=== PATIENT | female | born 1935 | race Caucasian/White ===

== ENCOUNTER → 2017-01-07 | Outpatient (CLI) | payer MEDICARE ==
--- NOTE | 2017-01-08 07:49 | MM ---
Reason for exam: screening (asymptomatic). Last mammogram was performed 1 year and 1 month ago. History: Patient is postmenopausal and has history of high-risk lesion on a previous biopsy at age 70. High risk left mammotome panel of the left breast, November 25, 2005. Physical Findings: A clinical breast exam by your physician is recommended on an annual basis and results should be correlated with mammographic findings. MG 3D Screening Mammo W/Cad Bilateral CC and MLO view(s) were taken. Prior study comparison: December 06, 2015, bilateral MG screening mammo w CAD. November 27, 2014, bilateral MG screening mammo w CAD. The breast tissue is almost entirely fat. Previous mammotome biopsy in the left breast. Asymmetric breast tissue in the right breast is stable with calcifications. No significant changes when compared with prior studies. ASSESSMENT: Benign, BI-RAD 2 RECOMMENDATION: Routine screening mammogram of both breasts in 1 year.
== END | disposition home or self-care (01) ==
LOC: RADMAMWWP 10:39
PROVIDERS: ATTEND Internal Medicine Geriatric Medicine
DX: Z12.31 Encounter for screening mammogram for malignant neoplasm of breast (principal)
CPT/HCPCS: 77063; G0202

== ENCOUNTER → 2017-02-04 | Outpatient (CLI) | payer MEDICARE ==
[~2017-02-04] MED LIST: DENOSUMAB 60 MG/ML 1 ML SYRINGE SQ ONE
[2017-02-04 14:50] VITALS: BP 153/72; PULSE 62; RESP 18; TEMP 98.4
== END | disposition home or self-care (01) ==
LOC: PROCWHC3 13:55
PROVIDERS: ATTEND Internal Medicine Geriatric Medicine
DX: M81.0 Age-related osteoporosis without current pathological fracture (principal)
CPT/HCPCS: 96372; J0897

== ENCOUNTER → 2017-08-26 | Outpatient (CLI) | payer MEDICARE ==
[2017-08-26 13:43] VITALS: BP 137/72; PULSE 65; RESP 18; TEMP 97.9
== END | disposition home or self-care (01) ==
LOC: PROCWHC3 13:16
PROVIDERS: ATTEND Internal Medicine Geriatric Medicine
DX: M81.0 Age-related osteoporosis without current pathological fracture (principal)
CPT/HCPCS: 96372; J0897

== ENCOUNTER → 2018-08-19 | Outpatient (CLI) | payer MEDICARE ==
--- NOTE | 2018-08-22 11:08 | MM ---
Reason for exam: additional evaluation requested from abnormal screening. Last mammogram was performed less than 1 month ago. History: Patient is postmenopausal and has history of high-risk lesion on a previous biopsy at age 70. High risk left mammotome panel of the left breast, November 25, 2005. Physical Findings: Nurse Summary: 1 x 1cm nodule in the left breast at 9 o'clock (nurse ts). MG 3D Work Up W/Cad RT CC with magnification, LM with magnification, and LM view(s) were taken of the right breast. Prior study comparison: August 05, 2018, bilateral MG screening mammo w CAD. January 07, 2017, bilateral MG 3d screening mammo w/cad. There are scattered fibroglandular densities. Finding: There are indeterminate calcifications in the upper outer quadrant of the right breast. Recommend needle localization with open biopsy given thickness of breast. These results were verbally communicated with the patient and result sheet given to the patient on 08/19/18. ASSESSMENT: Suspicious, BI-RAD 4 RECOMMENDATION: Localization and excision of the right breast. Patient refused to schedule with surgeon at this point.
--- NOTE | 2018-08-22 11:11 | USB ---
Reason for exam: additional evaluation requested from abnormal screening. History: Patient is postmenopausal and has history of high-risk lesion on a previous biopsy at age 70. High risk left mammotome panel of the left breast, November 25, 2005. US Breast Workup Limited LT Left limited breast ultrasound including focal area of concern, retroareolar and axilla demonstrates a 6 x 4 x 6mm oval, hypoechoic lesion at 9 o'clock, probable sebaceous cyst, biopsy recommended for right breast calcifications. These results were verbally communicated with the patient and result sheet given to the patient on 08/19/18. ASSESSMENT: Benign, BI-RAD 2 RECOMMENDATION: Clinical management of the left breast. Right needle localization recommended. Patient refused to schedule with surgeon at this point.
== END | disposition home or self-care (01) ==
LOC: RADMAMWWP 13:37
PROVIDERS: ATTEND Internal Medicine Geriatric Medicine
DX: R92.8 Other abnormal and inconclusive findings on diagnostic imaging of breast (principal)
CPT/HCPCS: 77065; 76642; G0279; 77061

== ENCOUNTER → 2018-09-22 | Outpatient (CLI) | payer MEDICARE ==
[2018-09-22 10:37] VITALS: BP 190/88; PULSE 88; RESP 18; TEMP 98.1; BMI 19.1
--- NOTE | 2018-09-22 11:03 | P.GSHP ---
History of Present Illness H&P Date: 09/22/18 Chief Complaint: Radiographic abnormalities bilateral breast The patient is an 82-year-old white female who underwent a routine screening mammogram on 9718. The findings here revealed #19 mm equal density isodense mass in both breast #2 indeterminate calcifications in the central position of the right breast. The patient has undergone previous mammotome biopsy of the left breast. The patient [place] [id number]. On the supplemental views she was noted to have #1 indeterminate calcifications in the upper outer quadrant of the right breast. Open surgical biopsy was recommended secondary to the size of the breast. Additionally the patient had an ultrasound performed of the left breast and on the left breast ultrasound the patient was recommended to have clinical management of a 6 x 6 mm oval hypoechoic lesion at 9:00 felt to likely represent a sebaceous cyst. The patient does not feel anything in her breast. She has no abnormal nipple discharge or changes. She has no history of any trauma or infection in her breast. She has undergone a stero biopsy of the left breast in the past which was benign. Family history: father: ?type of cancer Hormonal History: menarche: 13 : 5, 5 children, breast fed: 5, first born at 23 menopause: 50 BCP: none hormones: none Past Surgical History: 1. lesion removed from leg 2. ? gallbladder procedure Past Medical History: 1. none Social History: smoke: none alcohol: none drugs: none - Constitutional Constitutional: Denies chills, Denies fever - EENT Eyes: denies blurred vision, denies pain Ears: bilateral: decreased hearing, deny: tinnitus Ears, nose, mouth and throat: Denies headache, Denies sore throat - Breasts Breasts: bilateral: as per HPI - Cardiovascular Cardiovascular: Reports high blood pressure, Denies chest pain, Denies shortness of breath - Respiratory Respiratory: Denies cough, Denies 7 - Gastrointestinal Comment: ? procedure on gallbladder Gastrointestinal: Denies abdominal pain, Denies diarrhea, Denies nausea, Denies vomiting - Genitourinary (Female) Genitourinary: Denies dysuria, Denies hematuria - Menstruation Menstruation: Reports postmenopausal - Musculoskeletal Comment: arthritis in back Musculoskeletal: Denies myalgias - Integumentary Integumentary: Denies pruritus, Denies rash - Neurological Neurological: Denies numbness, Denies weakness - Psychiatric Psychiatric: Denies anxiety, Denies depression - Endocrine Endocrine: Reports weight change, Denies fatigue - Hematologic/Lymphatic Comment: none - Allergic/Immunologic Comment: none Past Medical History Past Medical History: Hypertension History of Any Multi-Drug Resistant Organisms: None Reported Past Surgical History: Breast Surgery Additional Past Surgical History / Comment(s): Hx. breast biopsy Past Psychological History: No Psychological Hx Reported Smoking Status: Never smoker Past Alcohol Use History: None Reported Past Drug Use History: None Reported - Past Family History Father Family Medical History: Cancer Mother Additional Family Medical History / Comment(s): at age 96 Medications and Allergies Home Medications Medication Instructions Recorded Confirmed Type Atenolol 1 tab PO DAILY 07/17/14 08/26/17 History Fish Oil/Dha/Epa [Fish Oil 1,200 2 tab PO DAILY 07/17/14 08/26/17 History mg Fish Oil] Lisinopril 1 tab PO DAILY 07/17/14 08/26/17 History Multivitamin/Iron/Folic Acid 1 tab PO DAILY 07/17/14 08/26/17 History [Centrum Complete Multivit Tab] Simvastatin 1 tab PO DAILY 07/17/14 08/26/17 History Aspirin 81 mg PO DAILY 07/15/15 08/26/17 History HYDROcodone/APAP 5-325MG [Kerman 5] 1 each PO Q6HR PRN 07/15/15 08/26/17 History Latanoprost Ophth [Xalatan 0.005%] 1 drops BOTH EYES HS 07/15/15 08/26/17 History Allergies Allergy/AdvReac Type Severity Reaction Status Date / Time No Known Allergies Allergy Verified 08/26/17 13:38 Surgical - Exam P: 88 BP: 190/88 R; 18 T: 98.1 BMI 19.1 - General thin no distress - Eyes normal ocular movement - ENT no hearing loss, no congestion - Neck no masses, trachea midline - Respiratory normal respiratory effort, clear to auscultation - Cardiovascular Rhythm: regular Heart Sounds: normal: S1, S2 - Abdomen Abdomen: soft, non tender, no guarding, no rigid, no rebound - Integumentary no rash, no abnormal pigmentation - Neurologic no disoriented, no combative - Musculoskeletal normal gait, normal posture - Psychiatric oriented to time, oriented to person, oriented to place, speech is normal, memory intact breast exam: right breast: very thin, multipositional exam no masses of concern right axilla: no adenopathy of concern left breast: very thin, no ahmet on multipositional exam of concern left axilla: no adenopathy of concern Results Radiographs were reviewed with the radiologist. Upon review there is noted to be in the right breast an area of nodularity with calcifications. As per radiologist this could be evaluated by ultrasound and possible ultrasound- guided core biopsy performed rather than an open surgical biopsy. In the left breast the area noted on ultrasound appears to be benign and repeat left breast ultrasound in 6 months time is recommended. Assessment and Plan Assessment: Impression: 1. Radiographic abnormality bilateral breast 2. Ultrasound of the right breast if this is amiable to ultrasound-guided core biopsy of this will be recommended otherwise surgical resection of nodule with calcifications will be recommended 3. Repeat ultrasound of the left breast in 6 months time 4. Retention 5. Prior history of gallbladder disease Plan: 1. Ultrasound of the right breast depending on results of this ultrasound- guided core biopsy of the lesion in the right breast versus surgical resection of the area of concern after needle localization 2. Medical management of medical conditions 3. Repeat left breast ultrasound in 6 months time CC: Dr. George
== END | disposition home or self-care (01) ==
LOC: WWCWWP 09:49
PROVIDERS: ATTEND Surgery
DX: Z53.9 Procedure and treatment not carried out, unspecified reason (principal)

== ENCOUNTER → 2018-10-05 | Outpatient (CLI) | payer MEDICARE ==
--- NOTE | 2018-10-05 13:03 | USB ---
Reason for exam: additional evaluation requested from prior study. History: Patient is postmenopausal and has history of high-risk lesion on a previous biopsy at age 70. High risk left mammotome panel of the left breast, November 25, 2005. Physical Findings: See exam from 08/19/18. US Breast RT Right complete breast ultrasound includes all four quadrants, the retroareolar region and axilla. Finding demonstrates calcifications not visible by ultrasound. Needle localization with open biopsy recommended. These results were verbally communicated with the patient and result sheet given to the patient on 10/05/18. ASSESSMENT: Suspicious, BI-RAD 4 RECOMMENDATION: Localization and excision of the right breast. Called with mammographic findings and has scheduled an appointment for the patient for 10/13/18 at 3:[address] Becerril. PRELIMINARY REPORT CALLED AND FAXED TO DR. BECERRIL ON 10/05/18.
== END | disposition home or self-care (01) ==
LOC: RADUSWWP 10:44
PROVIDERS: ATTEND Surgery
DX: R92.8 Other abnormal and inconclusive findings on diagnostic imaging of breast (principal)

== ENCOUNTER → 2019-06-23 | Outpatient (CLI) | payer MEDICARE ==
[~2019-06-23] MED LIST changes: +DENOSUMAB 60 MG/ML 1 ML SYRINGE SQ NR; -DENOSUMAB 60 MG/ML 1 ML SYRINGE SQ ONE
[2019-06-23 10:21] VITALS: BP 159/76; PULSE 64; RESP 16; TEMP 97.5
== END ==
LOC: PROCWHC3 09:48
PROVIDERS: ATTEND Internal Medicine Geriatric Medicine
DX: M81.0 Age-related osteoporosis without current pathological fracture (principal)
CPT/HCPCS: 96372

== ENCOUNTER → 2019-08-16 | Outpatient (CLI) | payer MEDICARE ==
--- NOTE | 2019-08-16 14:13 | MM ---
Reason for exam: additional evaluation requested from prior study. Last mammogram was performed 1 year ago. History: Patient is postmenopausal and has history of high-risk lesion on a previous biopsy at age 70. High risk left mammotome panel of the left breast, November 25, 2005. Physical Findings: Nurse did not find any significant physical abnormalities on exam. MG 3D Diag Mammo W/Cad ELYSE Bilateral CC and MLO view(s) were taken. Prior study comparison: August 19, 2018, right breast MG 3d work up w/cad RT. August 05, 2018, bilateral MG screening mammo w CAD. There are scattered fibroglandular densities. Previous mammotome biopsy in the left breast. Focal asymmetry disperses on compression. These results were verbally communicated with the patient and result sheet given to the patient on 08/16/19. ASSESSMENT: Benign, BI-RAD 2 RECOMMENDATION: Routine screening mammogram of both breasts in 1 year.
== END | disposition home or self-care (01) ==
LOC: RADMAMWWP 12:55
PROVIDERS: ATTEND Internal Medicine Geriatric Medicine
DX: R92.8 Other abnormal and inconclusive findings on diagnostic imaging of breast (principal)
CPT/HCPCS: 77066; G0279; 77062

== ENCOUNTER → 2019-12-26 | Outpatient (CLI) | payer MEDICARE ==
[2019-12-26 09:57] VITALS: BP 171/92; PULSE 71; RESP 16; TEMP 98.3
== END | disposition home or self-care (01) ==
LOC: PROCWHC3 09:45
PROVIDERS: ATTEND Internal Medicine Geriatric Medicine
DX: M81.0 Age-related osteoporosis without current pathological fracture (principal)
CPT/HCPCS: 96372; J0897

== ENCOUNTER → 2020-06-27 | Outpatient (CLI) | payer MEDICARE ==
[~2020-06-27] MED LIST changes: -DENOSUMAB 60 MG/ML 1 ML SYRINGE SQ NR; +DENOSUMAB 60 MG/ML 1 ML SYRINGE SQ ONE
[2020-06-27 13:08] VITALS: BP 147/67; PULSE 64; RESP 16; TEMP 98
== END | disposition home or self-care (01) ==
LOC: PROCWHC3 12:49
PROVIDERS: ATTEND Internal Medicine Geriatric Medicine
DX: M81.0 Age-related osteoporosis without current pathological fracture (principal)
CPT/HCPCS: 96372; J0897

== ENCOUNTER → 2020-09-20 | Outpatient (CLI) | payer MEDICARE ==
--- NOTE | 2020-09-20 17:33 | BD ---
EXAMINATION TYPE: Axial Bone Density DATE OF EXAM: 09/20/2020 COMPARISON: 08.05.2018 CLINICAL HISTORY: 84 YR OLD FEMALE.....ICD-10 CODE: M81.0 AGE RELATED OSTEOPOROSIS Height: 57.2 Weight: 100 FRAX RISK QUESTIONS: NOTHING TO NOTE HERE RISK FACTORS HISTORY OF: Diet low in dairy products/other sources of calcium: YES Postmenopausal woman: YES 52 Lost more than 2 inches in height since high school: YES Hyperparathyroidism: NO Adrenal Insufficiency: NO MEDICATIONS: Additional Medications: BP MEDS, VITAMINS AND PAIN MED PRN Additional History: HYPERTENSION EXAM MEASUREMENTS: Bone mineral densitometry was performed using the [employer] System. Bone mineral density as measured about the Lumbar spine is: ----- L1-L4(G/cm2): 0.905 T Score Values are as follows: ----- L1: -4.0 ----- L2: -3.0 ----- L3: -1.5 ----- L4: -1.2 ----- L1-L4: -2.3 Bone mineral density has: Increased 22.2% since study of: 08.05.2018 Bone mineral density about the R hip (g/cm2): 0.572 Bone mineral density about the L hip (g/cm2): 0.555 T Score values are as follows: -----R Neck: -2.8 -----L Neck: -2.8 -----R Total: -3.5 -----L Total: -3.6 Bone mineral density has: Decreased -7.7% since study of: 08.05.2018 FRAX%s: THERE IS A 19.8% CHANCE FOR A MAJOR OSTEOPOROTIC FX AND A 7.9% FOR HIP......PROBABILITY FO R FX IN 10 YRS TIME IMPRESSION: Osteoporosis (T Score less than -2.5). There is increased fracture risk and therapy is usually indicated based on age. Re-Screen 1-2 years. NOTE: T-SCORE=SD OF THE YOUNG ADULT MEAN.
--- NOTE | 2020-09-24 08:19 | MM ---
Reason for exam: screening (asymptomatic). Last mammogram was performed 1 year and 1 month ago. History: Patient is postmenopausal and has history of high-risk lesion on a previous biopsy at age 70. High risk left mammotome panel of the left breast, November 25, 2005. Physical Findings: A clinical breast exam by your physician is recommended on an annual basis and results should be correlated with mammographic findings. MG 3D Screening Mammo W/Cad Bilateral CC and MLO view(s) were taken. Prior study comparison: August 16, 2019, bilateral MG 3d diag mammo w/cad ELYSE. August 19, 2018, right breast MG 3d work up w/cad RT. There are scattered fibroglandular densities. Previous mammotome biopsy in the left breast. There is chronic nodularity in the left breast. No significant changes when compared with prior studies. ASSESSMENT: Negative, BI-RAD 1 RECOMMENDATION: Routine screening mammogram of both breasts in 1 year.
== END | disposition home or self-care (01) ==
LOC: RADMAMWWP 11:34
PROVIDERS: ATTEND Internal Medicine Geriatric Medicine
DX: Z12.31 Encounter for screening mammogram for malignant neoplasm of breast (principal); M81.0 Age-related osteoporosis without current pathological fracture
CPT/HCPCS: 77063; 77067; 77080

== ENCOUNTER → 2021-07-07 | Outpatient (CLI) | payer MEDICARE ==
[~2021-07-07] MED LIST changes: +DENOSUMAB 60 MG/ML 1 ML SYRINGE SQ NR; -DENOSUMAB 60 MG/ML 1 ML SYRINGE SQ ONE
[2021-07-07 10:08] VITALS: BP 162/83; PULSE 64; RESP 16; TEMP 98.8
== END ==
LOC: PROCWHC3 09:55
PROVIDERS: ATTEND Internal Medicine Geriatric Medicine
DX: M81.0 Age-related osteoporosis without current pathological fracture (principal)
CPT/HCPCS: 96372; J0897

== ENCOUNTER → 2021-12-19 | Outpatient (CLI) | payer MEDICARE ==
--- NOTE | 2021-12-23 08:22 | MM ---
Reason for exam: screening (asymptomatic). Last mammogram was performed 1 year and 3 months ago. History: Patient is postmenopausal and has history of high-risk lesion on a previous biopsy at age 70. High risk left mammotome panel of the left breast, November 25, 2005. Physical Findings: A clinical breast exam by your physician is recommended on an annual basis and results should be correlated with mammographic findings. MG 3D Screening Mammo W/Cad Bilateral CC and MLO view(s) were taken. Prior study comparison: September 20, 2020, bilateral MG 3d screening mammo w/cad. August 16, 2019, bilateral MG 3d diag mammo w/cad ELYSE. There are scattered fibroglandular densities. Previous mammotome biopsy in the left breast. There is chronic nodularity in the left breast. Stable grouped course calcifications right breast. No significant changes when compared with prior studies. ASSESSMENT: Benign, BI-RAD 2 RECOMMENDATION: Routine screening mammogram of both breasts in 1 year.
== END | disposition home or self-care (01) ==
LOC: RADMAMWWP 13:39
PROVIDERS: ATTEND Internal Medicine Geriatric Medicine
DX: Z12.31 Encounter for screening mammogram for malignant neoplasm of breast (principal); Z78.0 Asymptomatic menopausal state
CPT/HCPCS: 77063; 77067

== ENCOUNTER → 2022-06-25 | Outpatient (CLI) | payer MEDICARE ==
--- NOTE | 2022-06-25 13:17 | CT ---
EXAMINATION TYPE: CT abdomen pelvis w con DATE OF EXAM: 06/25/2022 COMPARISON: None INDICATION: Generalized abdominal pain. DLP: 301.7 mGycm, Automated exposure control for dose reduction was used. CONTRAST: 70ml mL of Isovue 300. Study performed with Oral Contrast TECHNIQUE: Axial images were obtained from above the diaphragm to the pubic rami in the axial plane a t 5 mm thick sections. Reconstructed images are reviewed on the computer in the coronal plane. FINDINGS: Limited CT sections are obtained the lung bases. The lung bases are clear. Dense coronary artery ca lcifications present. CT ABDOMEN: Liver: Normal Spleen: Normal Pancreas: Normal Adrenal glands: The adrenal glands are normal. Gallbladder: Surgically absent Kidneys: No masses are evident. No hydronephrosis is present. No cysts are present. Delayed images were obtained through the kidneys, which remain unremarkable. Aorta: Vascular calcification is within the aorta. Inferior vena cava: Normal. CT PELVIS: Loops of bowel within the abdomen and pelvis are normal. There are loops of bowel which are incom pletely distended or lack oral contrast limiting their evaluation. Appendix: Normal as visualized. Urinary bladder: Normal. Genitourinary structures: Uterus appears normal. Adnexa are within normal limits Osseous structures: No suspicious lytic or sclerotic lesions. Facet changes are within the lower lumb ar spine. Scoliosis is. IMPRESSIONS: 1. No suspicious abdomen abnormality to account for abdominal pain
== END | disposition home or self-care (01) ==
LOC: RADCTMAIN 07:57
PROVIDERS: ATTEND Internal Medicine Geriatric Medicine
DX: R10.84 Generalized abdominal pain (principal)
CPT/HCPCS: 74177; Q9967 ×2